=== PATIENT | male | born 1990 | race Caucasian/White ===

== ENCOUNTER 2020-02-19 15:48 | Emergency (ER) | payer BC, OTHER ==
[2020-02-19] MEDS ORDERED: Ondansetron 4 MG Tab.DIS PO PRN (16:57)
--- NOTE | 2020-02-19 18:58 | ER ---
DATE SEEN: 02/19/2020 SUBJECTIVE: This is a 29-year-old male patient, who was fixing his house, and his drill bit him in the right lower lip and he sustained a laceration. He is doing well. He did not hurt his teeth at all. He has no other concerns today. OBJECTIVE: VITAL SIGNS: Vitals taken today. GENERAL: He is alert, in no acute distress. HEENT: He has a 1.5 cm laceration that is over the vermilion border on the right lower side. Teeth are intact. ASSESSMENT: Lip laceration. PLAN: The patient says he had a tetanus shot 2 years ago at [facility]. I cleaned the area with Hibiclens. Put 2% xylocaine, no epinephrine. I took 2-0 silk sutures, and 4 simple sutures placed in the vermilion border was lined up. Blood loss was minimal. Complications none. Wound care sheet was given and discussed with him. He needs to follow up in 5 days for suture removal. /[id number] LOIS/PACHECO KHAN
== END 2020-02-19 17:07 | disposition home or self-care (01) ==
LOC: FB.ED 15:48
DX: S01.511A Laceration without foreign body of lip, initial encounter (principal); X58.XXXA Exposure to other specified factors, initial encounter
CPT/HCPCS: 12011; 99282-25